=== PATIENT | male | born 1990 | race Caucasian/White ===

== ENCOUNTER 2020-03-31 23:33 | Emergency (ER) | payer MEDICAID ==
[~2020-03-31] VITALS: Ht 172.7 cm; Wt 90.0 kg
[2020-04-01 00:07] VITALS: BP 132/59
== END 2020-04-01 03:17 | disposition home or self-care (01) ==
LOC: ER 23:33
DX: R42 Dizziness and giddiness (principal)
CPT/HCPCS: 82962; 93005; 99283

== ENCOUNTER 2024-05-18 15:11 | Emergency (ER) | payer SELFPAY ==
[~2024-05-18] VITALS: Ht 172.7 cm; Wt 104.0 kg
[~2024-05-18 15:11] MED LIST: AMOX1TAB16 MT
[2024-05-18 15:17] VITALS: TEMP 36.9; O2SAT 99
[2024-05-18] MEDS: KETOROLAC 15MG/ML VIAL IM ONE (15:45)
[2024-05-18 16:39] LABS: CLARITY URINE CLOUDY (CLEAR); COLOR URINE YELLOW (YELLOW); GLUCOSE URINE NEGATIVE (NEGATIVE); KETONES URINE NEGATIVE (NEGATIVE); LEUKOCYTE ESTERASE URINE NEGATIVE (NEGATIVE); NITRITE URINE NEGATIVE (NEGATIVE); OCCULT BLOOD URINE NEGATIVE (NEGATIVE); PH URINE 5.5 (4.5-8.0); PROTEIN URINE NEGATIVE (NEGATIVE); SPECIFIC GRAVITY URINE 1.044 (1.005-1.030); UROBILINOGEN URINE 0.2 E.U./dL (0.2-1.0)
[2024-05-18 17:21] LABS: BACTERIA URINE 2+; CALCIUM OXALATE CRYSTALS URINE 1+ /lpf; RBC URINE 0-2 /hpf (0-2); SQUAMOUS EPITHELIAL CELL URINE FEW /lpf (RARE/1+)
[2024-05-18] MEDS ORDERED: ACET-2708 MT (17:27)
[2024-05-18] MEDS ORDERED: IBUP-2029 MT (17:27)
[2024-05-18 17:39] VITALS: PULSE 86; O2SAT 98
[2024-05-18 17:45] VITALS: BP 136/78; RESP 20
[2024-05-18] MEDS: LIDOCAINE 5% PATCH TOP SCH (17:45)
[2024-05-18] MEDS ORDERED: LIDO700A30 TP (17:45)
[2024-05-18] MEDS: ACETAMINOPHEN 325MG TABLET PO ONE (17:45)
== END 2024-05-18 17:50 | disposition home or self-care (01) ==
LOC: ER 15:11
DX: M54.6 Pain in thoracic spine (principal); Z79.899 Other long term (current) drug therapy
CPT/HCPCS: 99283; 81003; 96372; J1885